=== PATIENT | female | born 1990 | race Hispanic/Latino ===

== ENCOUNTER 2017-06-13 17:17 | Outpatient (CLI) | payer OTHER ==
--- NOTE | 2017-06-13 18:35 | RAD ---
CHEST TWO VIEWS: History: Bronchi dyspnea. Comparison: None. FINDINGS: Cardiac silhouette and pulmonary vasculature are unremarkable. Right perihilar infiltrate is present without lobar consolidation. No pleural fluid or pneumothorax. Linear atelectasis extends to the righ t lung base. IMPRESSION: Right perihilar and lower lobe infiltrate. Clinical correlation regarding other signs and symptoms of right lower lobe pneumonitis is required. Please consider radiographic follow up after medical treat ment to evaluate for resolution. POS: [facility]
== END 2017-06-13 17:18 | disposition home or self-care (01) ==
LOC: RAD 17:17
PROVIDERS: ATTEND Family Medicine
DX: J40 Bronchitis, not specified as acute or chronic (principal); R91.8 Other nonspecific abnormal finding of lung field
CPT/HCPCS: 71046

== ENCOUNTER 2017-06-15 03:53 | Emergency (ER) | payer OTHER, SELFPAY ==
[2017-06-15] MEDS ORDERED: Acetaminophen 500 MG TAB ONE (04:33)
[2017-06-15 05:04] LABS: Bilirubin Negative (Negative); Blood, Urine Negative (Negative); Clarity CLEAR (Clear); Glucose, Urine (Dipstick) Negative (Negative); Leukocyte Negative (Negative); Nitrite Negative (Negative); Protein, Urine (Dipstick) Negative (Neg-Trace); Specific Gravity, Urine 1.006 (1.002-1.036); Urobilinogen 0.2 mg/dL (0.2-1.0)
[2017-06-15 05:05] LABS: Pregnancy Test - Urine (BHCG) Negative (Negative); Pregu Control Background? CLEAR/WHITE (CLR/WHITE); Pregu Control Bar Appear? YES (CONTROL BAR); Specific Gravity 1.006 (1.002-1.036)
[2017-06-15 05:15] LABS: #Lymphocytes 1.2 thou/uL (1.20-3.40); #Monocytes 0.8 thou/uL (0.11-0.59); #Neutrophils 5.8 thou/uL (1.40-6.50); %Basophils 0.5 % (0.0-1.0); %Eosinophils 0.2 % (0.0-10.0); %Lymphocytes 15.5 % (21.0-51.0); %Monocytes 10.5 % (0.0-10.0); %Neutrophils 73.2 % (42.0-75.0); Hemoglobin 14.5 g/dL (12.0-16.0); Mean Corpuscular Hemoglobin 30.1 pg (27.0-31.0); Mean Corpuscular Volume 91.2 fl (81.0-99.0); Mean Platelet Volume 7.2 fL (7.4-10.4); Platelet Count 333 thou/uL (130-400); Red Blood Cell (RBC) Count 4.82 mill/uL (4.20-5.40); White Blood Cell (WBC) Count 7.9 thou/uL (4.8-10.8)
[2017-06-15 05:27] LABS: ALT (SGPT) 18 U/L (8-55); AST (SGOT) 20 U/L (5-34); Albumin 4.4 g/dL (3.5-5.0); Alkaline Phosphatase 59 U/L (40-150); Anion Gap 11 mmol/L (10-20); BUN (Urea Nitrogen) 5 mg/dL (7.0-18.7); Bilirubin, Total 0.2 mg/dL (0.2-1.2); Calc. Creatinine Clearance 0 mL/min (70-130); Calcium 9.2 mg/dL (7.8-10.44); Carbon Dioxide 29 mmol/L (22-29); Chloride 100 mmol/L (98-107); Estimated GFR-MDRD Greater than 90; Glucose 121 mg/dL (70-105); Potassium 3.6 mmol/L (3.5-5.1); Protein, Total 8.4 g/dL (6.0-8.3); Sodium 136 mmol/L (136-145)
--- NOTE | 2017-06-15 08:27 | RAD ---
TWO VIEWS CHEST: Date: 06-15-17 Provided Clinical History: Cough. FINDINGS: Comparison 06-13-17. Cardiac and mediastinal silhouette is unchanged in appearance. Airspace disease in the right parahila r region is redemonstrated, compatible with pneumonia. Lungs appear otherwise clear. No pleural fluid or pneumothorax apparent. IMPRESSION: Findings compatible with right perihilar pneumonia. POS: OFF
== END 2017-06-15 06:07 | disposition home or self-care (01) ==
LOC: ERS 03:53
DX: J18.9 Pneumonia, unspecified organism (principal)
CPT/HCPCS: 71046; 80053; 81003; 81025; 85025; 87086; 94640; 96361; 96374; J0696; J7620

== ENCOUNTER 2018-03-23 02:22 | Inpatient (IN) | payer OTHER ==
[2018-03-23 03:03] VITALS: BMI 31.1
[2018-03-23] MEDS: Lactated Ringer's 1,000 ML IV SCH ×2 (03:03→04:30)
[2018-03-23] MEDS ORDERED: Promethazine HCl 25 MG/ML VIAL IM PRN ×2 (03:15→04:02)
[2018-03-23] MEDS ORDERED: Butorphanol Tartrate 1 MG/ML VIAL SLOW IVP PRN (03:15)
[2018-03-23] MEDS ORDERED: Ondansetron PF 4 MG/2 ML Vial IVP PRN ×3 (03:15→10:49)
[2018-03-23 03:16] LABS: Hemoglobin 14.1 g/dL (12.0-16.0); Mean Corpuscular HGB CONC 34.6 g/dL (32.0-36.0); Mean Corpuscular Hemoglobin 30.6 pg (27.0-31.0); Mean Corpuscular Volume 88.6 fL (78.0-98.0); Mean Platelet Volume 9.2 fL (7.4-10.4); Platelet Count 268 thou/uL (130-400); RBC Distribution Width 11.7 % (11.5-14.5); White Blood Cell (WBC) Count 11.6 thou/uL (4.8-10.8)
[2018-03-23] MEDS ORDERED: Fentanyl 4 mcg/Bup 0.1% Cadd 100 ML ONE (03:16)
[2018-03-23 03:57] LABS: Hep B Surf Ag Non-Reactive S/CO (NonReactive)
[2018-03-23] MEDS ORDERED: Lactated Ringer's 500 ML IV PRN (04:02)
[2018-03-23] MEDS ORDERED: Naloxone HCl 0.4 mg/ml Vial IVP PRN ×2 (04:02)
[2018-03-23] MEDS ORDERED: ePHEDrine/0.9% NaCl/PF SYRINGE 50 mg/10 ml SLOW IVP PRN (04:02)
[2018-03-23] MEDS ORDERED: Hydrocerin (Eucerin) Cream 120 gm Jar TOP PRN (04:02)
[2018-03-23] MEDS ORDERED: Acetaminophen 325 MG TAB PO PRN (04:02)
[2018-03-23] MEDS ORDERED: diphenhydrAMINE 50 MG/ML VIAL IVP PRN (04:02)
[2018-03-23] MEDS ORDERED: Communication Order-Pharmacy FS SCH (04:15)
[2018-03-23] MEDS ORDERED: Fentanyl 4 mcg/Bupivacaine 0.1% Cassette 100 ML EPIDURAL SCH (04:15)
[2018-03-23 05:55] LABS: Syphilis Antibody Nonreactive (Nonreactive); Syphilis Antibody Index 0.04 S/CO (<1.00 Non-Reactive)
[2018-03-23] MEDS ORDERED: Lidocaine 1% (PF) 30 ML VIAL ONE (07:53)
[2018-03-23] MEDS: NS / Oxytocin 40 units/1000ml 1,000 ML ONE ×2 (08:20→09:33)
[2018-03-23] MEDS ORDERED: NS / Oxytocin 40 units/1000ml 1,000 ML ONE (09:31)
[2018-03-23] MEDS ORDERED: Lanolin Ointment 7 GM TUBE TOP PRN (10:49)
[2018-03-23] MEDS ORDERED: NS / Oxytocin 40 units/1000ml 1,000 ML IV SCH (10:49)
[2018-03-23] MEDS ORDERED: diphenhydrAMINE 25 MG CAP PO PRN (10:49)
[2018-03-23] MEDS ORDERED: Benzocaine/Menthol 20-0.5% 60 ML CAN TOP PRN (10:49)
[2018-03-23] MEDS ORDERED: HYDROcodone/Acetaminophen 5/325 mg Tablet PO PRN (10:49)
[2018-03-23] MEDS ORDERED: Preparation H Ointment 28 GM TUBE PR PRN (10:49)
[2018-03-23] MEDS ORDERED: Bisacodyl 10 MG SUPP PR PRN (10:49)
[2018-03-23] MEDS ORDERED: Milk Of Magnesia 30 ML UDCUP PO PRN (10:49)
[2018-03-23] MEDS ORDERED: Ferrous Sulfate 325 MG TAB PO SCH (11:15)
[2018-03-23] MEDS ORDERED: Docusate Calcium (SURFAK) 240 MG CAP PO SCH (11:15)
[2018-03-23] MEDS ORDERED: Prenatal Vitamin 1 TAB PO SCH (11:15)
[2018-03-23] MEDS: Ibuprofen 800 MG TAB PO SCH ×2 (13:33→21:35)
[2018-03-23] MEDS ORDERED: Bupivacaine/Epinephrine 0.25% 30 ML VIAL ONE (15:00)
[2018-03-23] MEDS ORDERED: Sodium Chloride 0.9% 10 ML ONE (15:28)
[2018-03-23] MEDS: Ferrous Sulfate 325 MG TAB PO SCH (18:53)
[2018-03-23] MEDS: Docusate Calcium (SURFAK) 240 MG CAP PO SCH (21:36)
[2018-03-24] MEDS: HYDROcodone/Acetaminophen 5/325 mg Tablet PO PRN ×2 (01:19→09:48)
[2018-03-24 05:15] LABS: Mean Corpuscular HGB CONC 33.5 g/dL (32.0-36.0); Mean Corpuscular Hemoglobin 30.3 pg (27.0-31.0); Mean Corpuscular Volume 90.3 fL (78.0-98.0); Mean Platelet Volume 9.3 fL (7.4-10.4); Platelet Count 220 thou/uL (130-400); RBC Distribution Width 11.8 % (11.5-14.5); Red Blood Cell (RBC) Count 3.95 mill/uL (4.20-5.40); White Blood Cell (WBC) Count 11.2 thou/uL (4.8-10.8)
[2018-03-24] MEDS: Ibuprofen 800 MG TAB PO SCH ×2 (05:56→14:08)
[2018-03-24 08:03] VITALS: BP 116/64; TEMP 98.3
[2018-03-24] MEDS ORDERED: Prenatal Vitamin 1 TAB PO SCH (09:00)
[2018-03-24] MEDS: Ferrous Sulfate 325 MG TAB PO SCH (09:44)
[2018-03-24] MEDS: Docusate Calcium (SURFAK) 240 MG CAP PO SCH (09:48)
== END 2018-03-24 17:00 | disposition home or self-care (01) | DRG 807 ==
LOC: L&D/OP 02:22 → L&D 03:21 → 3SE 13:14
PROVIDERS: ADMIT Family Medicine; ATTEND Family Medicine
PROC: 10E0XZZ Delivery of Products of Conception, External Approach (ICD-10-PCS; principal; 2018-03-23)
PROC: 10907ZC Drainage of Amniotic Fluid, Therapeutic from Products of Conception, Via Natural or Artificial Opening (ICD-10-PCS; 2018-03-23)
PROC: 0HQ9XZZ Repair Perineum Skin, External Approach (ICD-10-PCS; 2018-03-23)
DX: O70.0 First degree perineal laceration during delivery (principal); Z37.0 Single live birth; Z3A.38 38 weeks gestation of pregnancy
CPT/HCPCS: 36415; 51702; 85027; 86780; 86850; 86900; 86901; 87340; 99285; J2001

== ENCOUNTER 2019-04-28 19:59 | Emergency (ER) | payer OTHER, SELFPAY ==
[2019-04-28] MEDS ORDERED: Ibuprofen 200 MG TAB ONE (20:48)
[2019-04-28] MEDS ORDERED: Ondansetron ODT 4 MG TAB ONE (20:48)
[2019-04-28] MEDS ORDERED: Acetaminophen 500 MG TAB ONE (21:23)
== END 2019-04-28 21:32 | disposition home or self-care (01) ==
LOC: ERS 19:59
DX: J10.1 Influenza due to other identified influenza virus with other respiratory manifestations (principal)
CPT/HCPCS: 87804; 99284; Q0162